=== PATIENT | female | born 1975 | race African-American/Black ===

== ENCOUNTER 2016-11-16 08:54 | Emergency (ER) | payer OTHER ==
[2016-11-16 09:09] VITALS: BP 138/85; PULSE 97; TEMP 98.1
[2016-11-16] MEDS ORDERED: ALBUTEROL SO4 0.083% IH SOL 2.5 MG/3 ML VIAL.NEB. NEB ONE ×2 (09:38→09:39)
[2016-11-16 10:31] LABS: BASOPHIL 0.7 % (0-2.0); EOSINOPHIL 1.8 % (0-4.5); MCH 28.1 pg (25.7-33.7); MCHC 32.7 g/dl (32.0-36.0); MEAN CELL VOLUME 86.1 fl (80-96); NEUTROPHILS 78.4 % (42.8-82.8); PLATELET COUNT 235 K/MM3 (134-434); RDW 17.5 % (11.6-15.6); WHITE BLOOD COUNT 10.3 K/mm3 (4.0-10.0)
[2016-11-16 10:34] LABS: URINE APPEARANCE SLCLOUDY; URINE BILIRUBIN NEGATIVE (NEGATIVE); URINE COLOR YELLOW; URINE GLUCOSE (UA) NEGATIVE (NEGATIVE); URINE KETONE TRACE (NEGATIVE); URINE LEUK ESTERASE NEGATIVE (NEGATIVE); URINE NITRITE NEGATIVE (NEGATIVE); URINE UROBILINOGEN NEGATIVE E.U./dl (0.2-1.0)
[2016-11-16 10:48] LABS: URINE BLOOD 1+ (NEGATIVE); URINE PROTEIN 1+ (NEGATIVE)
[2016-11-16 11:25] LABS: URINE HYALINE CAST 1 /lpf; URINE MUCUS FEW; URINE RBC 9 /hpf (0-3); URINE WBC 4 /hpf (3-5)
[2016-11-16 12:10] LABS: INR 1.01 (0.82-1.09); PROTHROMBIN TIME (PATIENT) 11.1 SEC (9.98-11.88)
[2016-11-16 12:12] LABS: ACTIVATED PTT 37.6 SECONDS (26.9-34.4)
--- NOTE | 2016-11-16 12:16 | PDOC ---
History of Present Illness - General Chief Complaint: Cold Symptoms Stated Complaint: COUGH, FEVER Time Seen by Provider: 11/16/16 09:14 History Source: Patient Exam Limitations: No Limitations - History of Present Illness Initial Comments: 11/16/16 12:11 CC cough and congesion x 1 day; concerned had PE last spring; had rapid RRR Timing/Duration: reports: just prior to arrival Possible Cause: Yes: no prior episodes Modifying Factors: worse with: activity Past History - Past Medical History Allergies/Adverse Reactions: Allergies Allergy/AdvReac Type Severity Reaction Status Date / Time No Known Allergies Allergy Verified 11/16/16 09:02 Home Medications: Ambulatory Orders NK [No Known Home Medication] 11/16/16 HTN: Yes (HX OF NOT ON MED) Psychiatric Problems: Yes (anxiety) Other medical history: HX OF P.E , NOT ON MEDS NOW - Immunization History Immunization Up to Date: Yes - Psycho/Social/Smoking Cessation Hx Anxiety: No Suicidal Ideation: No Smoking History: Never smoked Have you smoked in the past 12 months: No Information on smoking cessation initiated: No Hx Alcohol Use: No Drug/Substance Use Hx: No Substance Use Type: None Review of Systems - Review of Systems Constitutional: No: Chills, Fever HEENTM: Yes: Symptoms Reported, Nose Congestion Respiratory: Yes: Cough, Wheezing Cardiac (ROS): No: Symptoms Reported ABD/GI: No: Symptoms Reported : No: Symptoms Reported *Physical Exam - Vital Signs Last Vital Signs Temp Pulse Resp BP Pulse Ox 98.1 F 97 H 18 138/85 97 11/16/16 09:02 11/16/16 09:02 11/16/16 09:02 11/16/16 09:02 11/16/16 09:02 - Physical Exam General Appearance: Yes: Appropriately Dressed. No: Apparent Distress HEENT: positive: TMs Normal, Pharynx Normal, Nasal Congestion Neck: positive: Supple. negative: Tender, Rigid, Lymphadenopathy (R), Lymphadenopathy (L) Respiratory/Chest: positive: Lungs Clear. negative: Accessory Muscle Use, Rapid RR, Rhonchi, Stridor, Wheezing Cardiovascular: positive: Regular Rhythm, Regular Rate. negative: Murmur ED Treatment Course - LABORATORY CBC & Chemistry Diagram: 11/16/16 10:09 11/16/16 12:00 - ADDITIONAL ORDERS Additional order review: Laboratory Results 11/16/16 11/16/16 10:09 10:09 D-Dimer 421 H Urine Color Yellow Urine Appearance Slcloudy Urine pH 6.0 Ur Specific [place] 1.025 Urine Protein 1+ H Urine Glucose (UA) Negative Urine Ketones Trace H Urine Blood 1+ H Urine Nitrite Negative Urine Bilirubin Negative Urine Urobilinogen Negative Ur Leukocyte Esterase Negative Urine RBC 9 Urine WBC 4 Ur Epithelial Cells Few Hyaline Casts 1 Urine Mucus Few Urine HCG, Qual Negative 11/16/16 10:00 Influenza Types A,B Antigen (IVAN) - Final Nasopharyngeal Swab - Final 11/16/16 10:09 RBC 4.75 MCV 86.1 MCHC 32.7 RDW 17.5 H D MPV 10.0 Neutrophils % 78.4 Lymphocytes % 11.7 D Monocytes % 7.4 Eosinophils % 1.8 Basophils % 0.7 - Medications Given in the ED: ED Medications Discontinued Medications Generic Name Dose Route Start Last Admin Trade Name Freq PRN Reason Stop Dose Admin Albuterol Sulfate 1 amp 11/16/16 09:39 11/16/16 09:40 Ventolin 0.083% Nebulizer Soln - NEB 11/16/16 09:40 1 amp ONCE ONE Administration Medical Decision Making - Medical Decision Making 11/16/16 12:14 Albuterol made feel better; DDimer= <500; will send home with Dx Viral ilness *DC/Admit/Observation/Transfer Diagnosis at time of Disposition: Viral infection - Discharge Dispostion Disposition: HOME Condition at time of disposition: Stable Admit: No - Patient Instructions Additional Instructions: rest; lots of fluids; return for increased symptoms; see local MD this week; res ; use albuterol as needed - Post Discharge Activity Work/School Note: Back to Work
[2016-11-16 12:45] LABS: ALBUMIN 4.2 g/dl (3.4-5.0); BILIRUBIN,DIRECT 0.2 mg/dL (0.0-0.2); CALCIUM 9.2 mg/dL (8.5-10.1); CREATININE 0.9 mg/dL (0.55-1.02); TOT PROT 9.1 g/dl (6.4-8.2)
== END 2016-11-16 12:26 | disposition home or self-care (01) ==
LOC: JER 08:54 → JERFT 08:54
PROC: 3E0F7GC Introduction of Other Therapeutic Substance into Respiratory Tract, Via Natural or Artificial Opening (ICD-10-PCS; principal; 2016-11-16)
DX: J06.9 Acute upper respiratory infection, unspecified (principal); B97.89 Other viral agents as the cause of diseases classified elsewhere; I10 Essential (primary) hypertension; Z86.711 Personal history of pulmonary embolism
CPT/HCPCS: 36415; 80048; 80076; 81003; 81015; 84703; 85025; 85379; 85610; 85730; 87804; 94640; 99281-25

== ENCOUNTER 2017-05-20 20:31 | Emergency (ER) | payer OTHER ==
[2017-05-20 21:09] VITALS: BP 130/90; PULSE 80; TEMP 97.8; BMI 32.2
--- NOTE | 2017-05-20 22:23 | PDOC ---
History of Present Illness - General History Source: Patient <Jorden Alfrao - Last Filed: 05/20/17 22:41> - General History Source: Patient Exam Limitations: No Limitations - History of Present Illness Initial Comments: The patient is a 41 yo F with a past medical history significant for PE, Anemia , Anxiety and Bilateral pulmonary emboli who presents with a sensation of panic due to many circumstances that occurred today. The patient notes she had a PE several months back but is not on any blood thinner. As a result of the many circumstances that occurred in the past days she came here. She notes she was seen here for 1 episode of anxiety/panic in January,. The patient does not take anything on a chronic basis for anxiety. The patient is not homicidal or suicidal. The patient denies chest pain, headache and SOB. She is currently tearful during interview. <EllieCharley darling - Last Filed: 05/20/17 22:56> - General Chief Complaint: Psychiatric Stated Complaint: ANXIETY Time Seen by Provider: 05/20/17 22:22 Past History - Past Medical History HTN: Yes Psychiatric Problems: Yes (Anxiety) Other medical history: PE - Immunization History Immunization Up to Date: Yes - Psycho/Social/Smoking Cessation Hx Anxiety: No Suicidal Ideation: No Smoking History: Never smoked Have you smoked in the past 12 months: No Information on smoking cessation initiated: No Hx Alcohol Use: Yes (wine) Drug/Substance Use Hx: No Substance Use Type: None <Jorden Alfaro - Last Filed: 05/20/17 22:41> <Charley Mccray - Last Filed: 05/20/17 22:56> - Past Medical History Allergies/Adverse Reactions: Allergies Allergy/AdvReac Type Severity Reaction Status Date / Time peanut Allergy Severe Verified 05/20/17 21:09 No Known Drug Allergies Allergy Verified 05/20/17 21:09 Home Medications: Ambulatory Orders Albuterol Sulfate Inhaler - [Ventolin HFA Inhaler -] 2 inh PO Q4H #1 inh Review of Systems - Review of Systems Able to Perform ROS?: Yes Comments:: CONSTITUTIONAL: Absent: fever, no chills, no fatigue EYES: Absent: visual changes ENT: Absent: ear pain, no sore throat CARDIOVASCULAR: Absent: chest pain, no palpitations RESPIRATORY: Absent: cough, no SOB GI: Absent: abdominal pain, no nausea, no vomiting, no constipation, no diarrhea GENITOURINARY: Absent: dysuria, no frequency, no hematuria MUSKULOSKELETAL: Absent: back pain, no arthralgia, no myalgia NEURO: +feelings of anxiety/panic Absent: homicidal and suicidal thoughts SKIN: Absent: rash <MahendraCharley - Last Filed: 05/20/17 22:56> *Physical Exam - Vital Signs Last Vital Signs Temp Pulse Resp BP Pulse Ox 97.8 F 80 19 130/90 100 05/20/17 21:05 05/20/17 21:05 05/20/17 21:05 05/20/17 21:05 05/20/17 21:05 <Jorden Alfaro - Last Filed: 05/20/17 22:41> - Vital Signs Last Vital Signs Temp Pulse Resp BP Pulse Ox 97.8 F 80 19 130/90 100 05/20/17 21:05 05/20/17 21:05 05/20/17 21:05 05/20/17 21:05 05/20/17 21:05 - Physical Exam Comments: GENERAL: Well-appearing, well-nourished. No apparent distress. HEENT: Normocephalic, atraumatic. PERRL, EOM intact. CARDIOVASCULAR: Normal S1, S2. Regular rate and rhythm. PULMONARY: Clear to auscultation bilaterally. ABDOMEN: Soft, non-distended, non-tender. EXTREMITIES: Normal ROM in all four extremities. No gross deformities. SKIN: Warm, dry. No rash NEUROLOGICAL: No focal neurological deficits. <MahendraCharley - Last Filed: 05/20/17 22:56> Heart Score/ECG Review #1 NSR @ 71 bpm. Normal ECG. <Charley Mccray - Last Filed: 05/20/17 22:56> *DC/Admit/Observation/Transfer - Discharge Dispostion Admit: No <Jorden Alfaro - Last Filed: 05/20/17 22:41> - Attestations Scribe Attestion: Documentation prepared by Charley Mccray, acting as infertility medical assistant for Jorden Alfaro MD/DO. <Charlye Mccray - Last Filed: 05/20/17 22:56> Diagnosis at time of Disposition: Panic attack - Referrals Referrals: Judy Hayes MD [Primary Care Provider] - Lisha Tavares MD [Staff Physician] - Malina Ayala MD [Staff Physician] - - Patient Instructions Printed Discharge Instructions: Anxiety and Panic Attacks (Alternative Therapy) Additional Instructions: Please follow up with one of the doctors given to you as a referral here in the department. Return if any problems. - Post Discharge Activity Work/School Note: Back to Work
[2017-05-20] MEDS ORDERED: LORazepam 1 MG TABLET PO ONE (22:42)
[2017-05-20] MEDS ORDERED: LORazepam 0.5 MG TABLET ONE (22:52)
--- NOTE | 2017-05-21 10:16 | EKG ---
Test Reason : Blood Pressure : / mmHG Vent. Rate : 071 BPM Atrial Rate : 071 BPM P-R Int : 176 ms QRS Dur : 098 ms QT Int : 420 ms P-R-T Axes : 049 006 020 degrees QTc Int : 456 ms NORMAL SINUS RHYTHM NORMAL ECG WHEN COMPARED WITH ECG OF 12-FEB-2016 22:31, NO SIGNIFICANT CHANGE WAS FOUND Confirmed by MD ERNESTINA, SITA ([id number]) on 05/21/2017 10:16:39 AM Referred By: Confirmed By:SITA DO MD
== END 2017-05-20 23:09 | disposition home or self-care (01) ==
LOC: JER 20:31
DX: F41.0 Panic disorder [episodic paroxysmal anxiety] (principal); I10 Essential (primary) hypertension; D64.9 Anemia, unspecified; Z86.711 Personal history of pulmonary embolism
CPT/HCPCS: 93005; 93010; 99281-25

== ENCOUNTER 2017-12-06 10:33 | Emergency (ER) | payer OTHER ==
[2017-12-06 10:39] VITALS: TEMP 98.3; BMI 32.2
--- NOTE | 2017-12-06 11:08 | PDOC ---
History of Present Illness - General Chief Complaint: Shortness of Breath Stated Complaint: SOB, LT LEG PAIN Time Seen by Provider: 12/06/17 11:06 History Source: Patient Exam Limitations: No Limitations - History of Present Illness Initial Comments: CHIEF COMPLAINT: 42 y/o afebrile female with PMH PE c/o SOB and chest discomfort since last night. HISTORY OF PRESENT ILLNESS: The patient states she was feeling short of breath and very fatigued from chewing her food last night. Today, after she dropped off her daughter at school she states she felt short of breath again and states "I just don't feel right". She states she feels the same was she felt prior to her Pulmonary embolism 2 years ago. She admit the cause of the PE was never found and she is no longer on blood thinners. She also admits to a "numb" feeling in her left thigh but states that's been present for 1 month. She also has weird bruising on her left lower leg. She denies f/c, n/v/d, cough, hemoptysis, abd pain, back pain, control use, recent travel. Vital signs on arrival are within normal limits REVIEW OF SYSTEMS: GENERAL/CONSTITUTIONAL: No fever/chills. No weakness. No weight change. HEAD, EYES, EARS, NOSE AND THROAT: No change in vision. No ear pain or discharge. No sore throat. CARDIOVASCULAR: +SOB and chest discomfort. RESPIRATORY: No cough, wheezing, or hemoptysis. GASTROINTESTINAL: No abd pain, nausea, vomiting, diarrhea. GENITOURINARY: No dysuria, frequency, or change in urination. MUSCULOSKELETAL: +left leg "numbness". No joint or muscle swelling or pain. No neck or back pain. SKIN: +bruising to left lower leg. NEUROLOGIC: No headache, vertigo, loss of consciousness, or loss of sensation. PHYSICAL EXAM: GENERAL: The patient is awake, alert, and fully oriented, in no acute distress. She is well appearing and ambulatory. She speaks in full sentences. No cough. HEAD: Normal with no signs of trauma. ENT: Pupils equal, round and reactive to light, extraocular movements intact, sclera anicteric, conjunctiva clear. LUNGS: Clear to auscultation bilaterally. Normal excursion. No respiratory distress or use of accessory muscles. CV: RRR, S1/S2, no MRG. Cap refill < 2 sec. ABDOMEN: Soft, non-distended, non-tender even to deep palpation, no hepatomegaly or splenomegaly, no masses. EXTREMITIES: Normal range of motion, no edema. No calf pain b/l LEs. Negative Travis's sign b/l LEs. NEUROLOGICAL: Normal speech, normal gait. CN II-XII grossly intact. Motor and sensory intact in b/l UEs and b/l LEs. PSYCH: Normal mood, normal affect. SKIN: Warm, dry, normal turgor, no rashes or lesions noted. Past History - Past Medical History Allergies/Adverse Reactions: Allergies Allergy/AdvReac Type Severity Reaction Status Date / Time peanut Allergy Severe Verified 12/06/17 10:36 No Known Drug Allergies Allergy Verified 12/06/17 10:36 Home Medications: Ambulatory Orders Albuterol Sulfate Inhaler - [Ventolin HFA Inhaler -] 2 inh PO Q4H #1 inh Cardiac Disorders: No (P.E) COPD: No HTN: Yes Psychiatric Problems: Yes (Anxiety) - Immunization History Immunization Up to Date: Yes - Suicide/Smoking/Psychosocial Hx Smoking History: Never smoked Have you smoked in the past 12 months: No Information on smoking cessation initiated: No Hx Alcohol Use: Yes (wine) Drug/Substance Use Hx: No Substance Use Type: None *Physical Exam - Vital Signs Last Vital Signs Temp Pulse Resp BP Pulse Ox 98.3 F 90 18 141/84 100 12/06/17 10:37 12/06/17 10:37 12/06/17 10:37 12/06/17 10:37 12/06/17 10:37 Heart Score/ECG Review - ECG Intrepretation Comment:: Twelve-lead EKG was performed and reviewed by Dr. Le. There is normal sinus rhythm with a normal rate. The axis is normal. The intervals are normal. There are no ST or T wave abnormalities. Impression: Normal twelve-lead EKG ED Treatment Course - LABORATORY CBC & Chemistry Diagram: 12/06/17 11:21 12/06/17 11:21 Medical Decision Making - Medical Decision Making A/P: 42 y/o female with chest discomfort and SOB since last night that feels like her symptoms from when she had a PE 2 years ago. Cause of PE was never identified. Low threshold for scan to r/o PE. Plan is as follows: 1. Labs 2. EKG 3. chest CTA EKG - no [id number] pattern noted D-Dimer 1068 CTA IMPRESSION: No PE. No acute pathology in the chest Venous doppler b/l LE IMPRESSION: No evidence of DVT Gave patient all of her results. She is relieved. Will discharge to home with return precautions. The patient verbalizes understanding of all instructions, has no further questions and is awaiting discharge. *DC/Admit/Observation/Transfer Diagnosis at time of Disposition: Shortness of breath - Discharge Dispostion Disposition: HOME Condition at time of disposition: Good - Referrals Referrals: En Davison MD [Primary Care Provider] - Call tomorrow - Patient Instructions Printed Discharge Instructions: DI for Shortness of Breath Additional Instructions: Discharge instructions: -You had a CTA of your chest that was negative for pulmonary embolism -You had an ultrasound of your legs that was negative for blood clot -Please follow up with Dr. Davison as soon as possible -Return to the ER immediately with any worsening or concerning symptoms - Post Discharge Activity Forms/Work/School Notes: Back to Work
[2017-12-06 11:52] LABS: BASO % 1.3 % (0-2.0); EOS % 0.5 % (0-4.5); HEMATOCRIT 32.8 % (32.4-45.2); LYMPH % 23.3 % (8-40); MCH 22.7 pg (25.7-33.7); MCHC 30.5 g/dl (32.0-36.0); MEAN CELL VOLUME 74.4 fl (80-96); MEAN PLT VOLUME 9.3 fl (7.5-11.1); MONO % 6.9 % (3.8-10.2); PLATELET COUNT 288 K/MM3 (134-434); RBC 4.41 M/mm3 (3.60-5.2); WHITE BLOOD COUNT 5.6 K/mm3 (4.0-10.0)
[2017-12-06 12:25] LABS: ALBUMIN 3.8 g/dl (3.4-5.0); ANION GAP 10 (8-16); BLOOD UREA NITROGEN 17 mg/dL (7-18); CALCIUM 8.6 mg/dL (8.5-10.1); CHLORIDE 101 mmol/L (98-107); CO2 22 mmol/L (21-32); CREATININE 1.1 mg/dL (0.55-1.02); GLUCOSE,RANDOM 148 mg/dL (74-106); SGPT/ALT 15 U/L (12-78); SODIUM 133 mmol/L (136-145)
[2017-12-06 12:28] LABS: ALK PHOS 59 U/L (45-117); BILIRUBIN,TOTAL 0.9 mg/dL (0.2-1.0); TOT PROT 8.8 g/dl (6.4-8.2)
[2017-12-06 12:29] LABS: POTASSIUM 4.6 mmol/L (3.5-5.1)
[2017-12-06 12:30] LABS: SGOT/AST 18 U/L (15-37)
[2017-12-06 17:18] VITALS: BP 133/75; PULSE 70
--- NOTE | 2017-12-06 17:37 | EKG ---
Test Reason : Blood Pressure : / mmHG Vent. Rate : 074 BPM Atrial Rate : 074 BPM P-R Int : 168 ms QRS Dur : 098 ms QT Int : 404 ms P-R-T Axes : 051 016 030 degrees QTc Int : 448 ms NORMAL SINUS RHYTHM NORMAL ECG WHEN COMPARED WITH ECG OF 20-MAY-2017 22:29, NO SIGNIFICANT CHANGE WAS FOUND Confirmed by CRYS WYNN MD ([id number]) on 12/06/2017 5:37:03 PM Referred By: Confirmed By:CRYS WYNN MD
== END 2017-12-06 17:18 | disposition home or self-care (01) ==
LOC: JER 10:33
DX: R06.02 Shortness of breath (principal); M79.605 Pain in left leg; I10 Essential (primary) hypertension; F41.9 Anxiety disorder, unspecified; Z86.711 Personal history of pulmonary embolism
CPT/HCPCS: 36415; 71275-TC; 80053; 82550; 84484; 84703; 85025; 85379; 93005; 93010; 93970-TC; 99283-25

== ENCOUNTER 2019-10-13 07:20 | Emergency (ER) | payer OTHER ==
--- NOTE | 2019-10-13 07:28 | PDOC ---
History of Present Illness - General Stated Complaint: PALPATATIONS,RIGHT ARM NUMBNESS Time Seen by Provider: 10/13/19 07:28 History Source: Patient Exam Limitations: No Limitations - History of Present Illness Initial Comments: 44 year old female with past medical history of anemia, anxiety, PE (Left sided , unprovoked per pt, x3 years ago, was on Eliquis x3 months then DC), hypertension (noncompliant with medication xmany years), rheumatoid arthritis ( "a touch and then I changed my diet and it got better") presented to the emergency department for right arm numbness for one week. Patient reported her symptoms are constant, located to the ulnar aspect of her right arm, beginning at the crease between her thumb and her first finger and extending up her arm, with no aggravating or alleviating factors. She reported she has recently developed new right sided neck pain over the last couple of months. She reported she intermittently will feel a shock down her the right side of her arm. She also complained of right sided chest pulling like pulling a piece of bread apart. She reported that last night she stood up and sneezed at the exact same time, then experienced lightheadedness and palpitations for the next three minutes. She reported after that time she felt anxiety for the next hour, but it subsided after she drank some water. She reported this morning while driving to work she had another episode of lightheadedness and palpitations, prompting her to come to the emergency department. She denied hx of recent travel>5 hours, calf pain, hemoptysis, OCP or hormone use, surgery <4 weeks, hx active malignancy, PSH: x1 ("many years ago") ROS General: denied fever, chills, generalized weakness. HEENT: denied sore throat, rhinorrhea, ear pain. Cardiovascular: admitted to chest pain, palpitations, lightheadedness. denied syncope, diaphoresis. Respiratory: admitted to shortness of breath. denied cough, sputum production, hemoptysis. Gastrointestinal: denied abdominal pain, nausea, vomiting, diarrhea, constipation, blood in stool. Genitourinary: denied dysuria, increased urinary frequency, hematuria, urinary incontinence, flank pain. Back: denied back pain. Musculoskeletal: denied joint pain, muscle pain, joint swelling. Neurological: admitted to numbness. denied headache, dizziness, tingling, weakness. Integumentary: denied rash, laceration, abrasion. Hematologic/Lymphatic: denied bruising or bleeding. PE Constitutional: Well-nourished, Well-developed, appearing stated age. HEENT: head is normocephalic, atraumatic. EOMI. PERRLA. Neck: supple. Full ROM. no midline c-spine tenderness to palpation. no paraspinal tenderness to palpation. Cardiovascular: regular heart rhythm. no murmurs. no pericardial friction rub. Respiratory: clear to auscultation bilaterally. no crackles, rhonchi or wheezing. no stridor. Gastrointestinal: soft, nontender. normal bowel sounds. no rebound, guarding, masses. Extremities: peripheral pulses intact. no lower extremity edema. no calf tenderness bilaterally. Neurological: CN 2-12 grossly intact. moves all four extremities. 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 No drift upper extremities bilaterally. Psych: awake, alert, oriented x3. follows commands. answers questions appropriately. Past History - Past Medical History Allergies/Adverse Reactions: Allergies Allergy/AdvReac Type Severity Reaction Status Date / Time peanut Allergy Severe Verified 12/06/17 10:36 No Known Drug Allergies Allergy Verified 12/06/17 10:36 Home Medications: Ambulatory Orders Methylprednisolone [Medrol Dose Danis] 4 mg PO ASDIR #21 tablet 10/13/19 - Immunization History Immunization Up to Date: Yes - Psycho Social/Smoking Cessation Hx Smoking History: Never smoked Have you smoked in the past 12 months: No Hx Alcohol Use: Yes (wine) Drug/Substance Use Hx: No Substance Use Type: None ED Treatment Course - LABORATORY CBC & Chemistry Diagram: 10/13/19 07:58 10/13/19 07:58 Medical Decision Making - Medical Decision Making 44 year old female with above PMH presented to ED for right sided arm numbness x1 week, associated with right sided chest pain and two pre-syncopal episodes. Initial Vital Signs Temp Pulse Resp BP Pulse Ox 98.1 F 78 16 145/76 100 10/13/19 07:37 10/13/19 07:37 10/13/19 07:37 10/13/19 07:37 10/13/19 07:37 Afebrile. No tachycardia. No tachypnea. Hypertensive. No hypoxia on room air. Labs ordered: CBC, CMP, Serum , Mg, PT/PTT/INR, D-dimer, TSH, troponin Imaging ordered: CT cervical spine noncontrast, CXR Medications ordered: none EKG performed at 0740: rate 75, regular rhythm, normal axis, normal intervals, no acute ST changes, QTc 446. Wells' Criteria for Pulmonary Embolism from [employer] on 10/13/2019 All calculations should be rechecked by clinician prior to use --RESULT SUMMARY: 1.5 points Low risk group: 1.3% chance of PE in an ED population. Another study assigned scores ? 4 as PE Unlikely and had a 3% incidence of PE. --INPUTS: Clinical signs and symptoms of DVT > 0 = No PE is #1 diagnosis OR equally likely > 0 = No Heart rate > 100 > 0 = No Immobilization at least 3 days OR surgery in the previous 4 weeks > 0 = No Previous, objectively diagnosed PE or DVT > 1.5 = Yes Hemoptysis > 0 = No Malignancy w/ treatment within 6 months or palliative > 0 = No 10/13/19 09:55 Laboratory Last Values WBC 4.3 K/mm3 (4.0-10.0) 10/13/19 07:58 RBC 3.89 M/mm3 (3.60-5.2) 10/13/19 07:58 Hgb 7.2 GM/dL (10.7-15.3) L 10/13/19 07:58 Hct 24.3 % (32.4-45.2) L 10/13/19 07:58 MCV 62.5 fl (80-96) L 10/13/19 07:58 MCH 18.6 pg (25.7-33.7) L D 10/13/19 07:58 MCHC 29.7 g/dl (32.0-36.0) L 10/13/19 07:58 RDW 24.1 % (11.6-15.6) H 10/13/19 07:58 Plt Count 460 K/MM3 (134-434) H D 10/13/19 07:58 MPV 8.7 fl (7.5-11.1) 10/13/19 07:58 Absolute Neuts (auto) 1.7 K/mm3 (1.5-8.0) 10/13/19 07:58 Neutrophils % Childcare Attendant 10/13/19 07:58 Lymphocytes % Childcare Attendant 10/13/19 07:58 Monocytes % Childcare Attendant 10/13/19 07:58 Eosinophils % Childcare Attendant 10/13/19 07:58 Basophils % Childcare Attendant 10/13/19 07:58 Nucleated RBC % 0 % (0-0) 10/13/19 07:58 PT with INR 12.20 SEC (9.7-13.0) 10/13/19 07:58 INR 1.03 (0.83-1.09) 10/13/19 07:58 PTT (Actin FS) 29.3 SECONDS (25.2-36.5) 10/13/19 07:58 D-Dimer 1185 ng/ml (0-500) H 10/13/19 07:58 Sodium 135 mmol/L (136-145) L 10/13/19 07:58 Potassium 4.1 mmol/L (3.5-5.1) 10/13/19 07:58 Chloride 101 mmol/L (98-107) 10/13/19 07:58 Carbon Dioxide 27 mmol/L (21-32) 10/13/19 07:58 Anion Gap 7 MMOL/L (8-16) L 10/13/19 07:58 BUN 11.6 mg/dL (7-18) 10/13/19 07:58 Creatinine 0.9 mg/dL (0.55-1.3) 10/13/19 07:58 Est GFR (CKD-EPI)AfAm 90.13 10/13/19 07:58 Est GFR (CKD-EPI)NonAf 77.76 10/13/19 07:58 Random Glucose 98 mg/dL (74-106) 10/13/19 07:58 Calcium 9.4 mg/dL (8.5-10.1) 10/13/19 07:58 Magnesium 1.8 mg/dL (1.8-2.4) 10/13/19 07:58 Total Bilirubin 1.3 mg/dL (0.2-1) H 10/13/19 07:58 AST 21 U/L (15-37) 10/13/19 07:58 ALT 18 U/L (13-61) 10/13/19 07:58 Alkaline Phosphatase 54 U/L (45-117) 10/13/19 07:58 Troponin I < 0.02 ng/ml (0.00-0.05) 10/13/19 07:58 Total Protein 9.0 g/dl (6.4-8.2) H 10/13/19 07:58 Albumin 3.6 g/dl (3.4-5.0) 10/13/19 07:58 TSH 2.71 uIU/ml (0.358-3.74) 12 07:58 Serum , Qual Negative 10/13/19 07:58 D-dimer elevated. -CTA ordered Microcytic anemia. -Pt has had past Hgb in similar range -Pt informed and advised to start iron supplementation and F/U with PCP within 1 week for repeat blood work Mild hyponatremia, no other electrolyte abnormalities. TSH wnl Troponin undetectable Negative serum testing No JENNIFER CT report: Name: MELANIA GON[facility]AL[facility] DEPARTMENT OF RADIOLOGY Phys: Basilia Zepeda RESIDENT : 1975 Age: 44 Sex: F [facility] Acct: [id number] Loc: [address] Exam Date: 10/13/19 Status: [place] [address] Unit Number: [id number] EXAM#: TYPE/EXAM: RESULT: [id number] CT/CERVICAL SPINE CT W/O CONTR Right arm numbness CT scan of the cervical spine without intravenous contrast Coronal and sagittal reconstruction images were obtained. There is straightening of the cervical spine. No gross fracture, subluxation or prevertebral soft tissue swelling is seen. No jumped facets are identified. At C5-C6 level there is mild degenerative disc disease with mild central disc bulge and posterior spur formation as well as mild bilateral uncovertebral hypertrophy slightly narrowing the foramina. At C6-C7 level there is mild degenerative disc disease and minimal left uncovertebral hypertrophy slightly narrowing the left foramen. Visualized portion of the airway appears unremarkable. No gross enlarged lymph nodes are identified. Lung windows at the thoracic inlet appear unremarkable. IMPRESSION: The alignment is satisfactory. No gross fracture or subluxation is seen. No jumped facets are identified. C5-C6 mild central disc bulge and posterior spur formation as well as mild bilateral uncovertebral hypertrophy slightly narrowing the foramina. C6-C7 mild degenerative disc disease and minimal left uncovertebral hypertrophy slightly narrowing the left foramen. Correlate clinically to determine further evaluation and follow-up Reported By: Dameon Martinez MD 10/13/19923 CXR report: Name: MELANIA GONZALES DEPARTMENT OF RADIOLOGY Phys: Hill Machado MD : 1975 Age: 44 Sex: F [facility] Acct: [id number] Loc: [address] Exam Date: 10/13/19 Status: [place] [id number] Unit Number: [id number] EXAM#: TYPE/EXAM: RESULT: [id number] RAD/CHEST X-RAY PORTABLE* Chest pain. Single PA view of the chest. Midline trachea, no evidence of widening of the superior mediastinum. The cardiac silhouette is not enlarged. No evidence of pneumonia, atelectasis, congestive changes. No pneumothorax, or large pleural effusion seen. Left nipple ring. Intact visualized osseous structures. No evidence of bulky hilar adenopathy. Thoracic spine mild dextroscoliosis. . No significant interval change in comparison to PA view of the chest January 10, 2016. Impression. No evidence of active pulmonary disease. Reported By: Jeff Martinez MD 10/13/19 0915 10/13/19 10:52 CTA report: Name: MELANIA GONZALES DEPARTMENT OF RADIOLOGY Phys: Basilia Zepeda : 1975 Age: 44 Sex: F [facility] Acct: [id number] Loc: [address] Exam Date: 10/13/19 Status: [place] [address] Unit Number: [id number] EXAM#: TYPE/EXAM: RESULT: [id number] CT/CHEST CTA Right chest pain. Presyncope. History of PE CT scan of the chest following intravenous contrast. A post intravenous contrast CT angiogram of the chest was performed utilizing pulmonary embolus protocol. Coronal/ sagittal reconstruction images were obtained. 67 cc of Omnipaque 350 was intravenously injected Compared to prior chest x-ray dated 10/13/2019 as well as prior CTA of the chest dated 12/06/2017 No gross filling defect is seen within the main pulmonary artery and its proximal branches, bilaterally. The thoracic and visualized portion of the upper abdominal aorta is normally enhanced without evidence of aneurysmal dilatation or dissection. The heart is within normal limits in size. No gross mediastinal or hilar enlarged lymph nodes are identified. The lung is clear. No pneumothorax or pleural effusion is seen, bilaterally. Notes made of bilateral breast implants. A left nipple metallic ring is also seen. Included portion of the upper abdomen appears unremarkable. Visualized osseous structures appear intact with mild degenerative changes and anterior spondylosis in the lower thoracic spine. IMPRESSION: There is no gross evidence of a pulmonary embolus within the main pulmonary artery and its proximal branches, bilaterally. No enlarged mediastinal or hilar lymph nodes are identified. No acute lung disease is present. No pneumothorax or pleural effusion are identified, bilaterally. Reported By: Dameon Martinez MD 10/13/19 1045 Pt discharged with Neurosurgery referral, prescription for medrol dose pack. Pt agreed with plan for care. Pt discharged. Discharge - Discharge Information Problems reviewed: Yes Clinical Impression/Diagnosis: Arm numbness, Anemia Condition: Stable Disposition: HOME - Admission No - Additional Discharge Information Prescriptions: Methylprednisolone [Medrol Dose Danis] 4 mg PO ASDIR #21 tablet - Follow up/Referral Referrals: Ehsan Arceo MD, FA[facility] [Staff Physician] - En Davison MD [Primary Care Provider] - Sandip Rowe MD [Staff Physician] - - Patient Discharge Instructions Patient Printed Discharge Instructions: DI for Iron Deficiency Anemia-Adult, Iron Supplements Additional Instructions: Follow up with your primary care doctor within 3 days regarding your Emergency Room visit. Your care is not complete until you follow up. Bring all paperwork given to you today to your appointment. Follow up with a neurosurgeon within 5 days regarding your Emergency Room visit. Your care is not complete until you follow up. Bring all paperwork given to you today to your appointment. I have provided you with a referral. Follow up with a bench worker binding within 5 days regarding your Emergency Room visit. Your care is not complete until you follow up. Bring all paperwork given to you today to your appointment. I have provided you with a referral. You are anemic, please start taking an over the counter Iron Supplement. Please follow up with your primary care doctor regarding this finding and have your blood work repeated within 7 days. I have prescribed a Medrol Dose Pack, it is a steroid which will help to decrease inflammation in your neck. Take as advised on label. Do not stop early on your own. Return to the Emergency Department for increasing pain, chest pain, increasing numbness, shortness of breath, weakness of your arms or legs (like one side is not as strong as the other), fever, vomiting, lightheadedness, passing out or any other new, worsening or concerning symptoms. - Post Discharge Activity Work/Back to School Note: Back to Work
[2019-10-13 07:57] VITALS: BMI 30.9
[2019-10-13 08:29] LABS: HEMATOCRIT 24.3 % (32.4-45.2); HEMOGLOBIN 7.2 GM/dL (10.7-15.3); MCHC 29.7 g/dl (32.0-36.0); MEAN CELL VOLUME 62.5 fl (80-96); MEAN PLT VOLUME 8.7 fl (7.5-11.1); PLATELET COUNT 460 K/MM3 (134-434); RBC 3.89 M/mm3 (3.60-5.2); RDW 24.1 % (11.6-15.6); WHITE BLOOD COUNT 4.3 K/mm3 (4.0-10.0)
[2019-10-13 08:30] LABS: MCH 18.6 pg (25.7-33.7)
[2019-10-13 08:50] LABS: ALBUMIN 3.6 g/dl (3.4-5.0); ALK PHOS 54 U/L (45-117); ANION GAP 7 MMOL/L (8-16); BILIRUBIN,TOTAL 1.3 mg/dL (0.2-1); BLOOD UREA NITROGEN 11.6 mg/dL (7-18); CALCIUM 9.4 mg/dL (8.5-10.1); CHLORIDE 101 mmol/L (98-107); CO2 27 mmol/L (21-32); CREATININE 0.9 mg/dL (0.55-1.3); GLUCOSE,RANDOM 98 mg/dL (74-106); MAGNESIUM 1.8 mg/dL (1.8-2.4); POTASSIUM 4.1 mmol/L (3.5-5.1); SGOT/AST 21 U/L (15-37); SGPT/ALT 18 U/L (13-61); SODIUM 135 mmol/L (136-145)
[2019-10-13 08:53] LABS: INR 1.03 (0.83-1.09); PROTHROMBIN TIME (PATIENT) 12.2 SEC (9.7-13.0)
[2019-10-13 08:55] LABS: ACTIVATED PTT 29.3 SECONDS (25.2-36.5)
[2019-10-13] MEDS ORDERED: ACETAMINOPHEN 1000 MG/100 ML VIAL (NON FORMULARY) IVPB ONE (09:48)
[2019-10-13] MEDS ORDERED: ALBUTEROL SO4 2.5/IPRATROPIUM 0.5 INH SOL 3 ML VIAL.NEB. NEB ONE (09:48)
[2019-10-13] MEDS ORDERED: SODIUM CHLORIDE 2,449 ML IV ONE (09:48)
[2019-10-13 11:08] VITALS: BP 139/68; PULSE 72; TEMP 98
--- NOTE | 2019-10-13 11:33 | PDOC ---
Attending Attestation - Resident Resident Name: Basilia Zepeda - ED Attending Attestation I have performed the following: I have examined & evaluated the patient, The case was reviewed & discussed with the resident, I agree w/resident's findings & plan, Exceptions are as noted - HPI HPI: 10/13/19 11:02 44 Years old with history of anemia anxiety PE in the past presents to the ED with radicular right arm numbness x1 week episode of palpitations yesterday no chest pain no shortness of breath no nausea no vomiting no diarrhea numbness is moderate persistent possible exacerbating alleviating factors Patient is off anticoagulation for PE was unprovoked - Physicial Exam PE: 10/13/19 11:33 Vitals: Triage Vital signs reviewed General Appearance: No acute distress, well nourished well developed, Cardiac: Regular rate and rhythym, no murmurs, no rubs, no gallops, Lungs: Clear to auscultation bilateral, good air movement bilaterally, Abdomen: Soft, non distended, normal bowel sounds, non tender to palpation Extremities: Full range of motion to all extremities, no cyanosis, clubbing, or edema Skin: Warm and dry, no rashes or lesions, no rash, no petechiae Neuro: AOX3; cranial Nerves 2-12 grossly intact, strength intact to all extremities, mild numbness right arm ulnar distribution, gait normal Psych: Normal mood, normal affect - Medical Decision Making 10/13/19 17:27 44 years old with radicular arm discomfort and palpitations last night previous history of unprovoked PE Unable to use PERC criteria low risk by Wells will use and conjunction with d- dimer to risk stratify D-dimer elevated Will CTA CTA negative for PE History and examination most consistent with radicular neck discomfort Patient will given Medrol Dosepak as well as neurosurgery follow-up. She was also advised to follow-up with hematology given that she has not had what appears to be a definitive work-up for her previous unprovoked PE Findings, the need for follow-up and strict return instructions discussed with patient.
--- NOTE | 2019-10-13 13:13 | EKG ---
Test Reason : Blood Pressure : / mmHG Vent. Rate : 075 BPM Atrial Rate : 075 BPM P-R Int : 160 ms QRS Dur : 090 ms QT Int : 400 ms P-R-T Axes : 064 002 033 degrees QTc Int : 446 ms NORMAL SINUS RHYTHM NORMAL ECG WHEN COMPARED WITH ECG OF 06-DEC-2017 12:23, NO SIGNIFICANT CHANGE WAS FOUND Confirmed by ENZO DAS MD ([id number]) on 10/13/2019 1:13:21 PM Referred By: Confirmed By:ENZO DAS MD
[2019-10-13 14:55] LABS: MACROCYTOSIS 1+
== END 2019-10-13 11:14 | disposition home or self-care (01) ==
LOC: JER 07:20
DX: R20.0 Anesthesia of skin (principal); D64.9 Anemia, unspecified; Z91.010 Allergy to peanuts; F41.9 Anxiety disorder, unspecified; Z86.711 Personal history of pulmonary embolism; I10 Essential (primary) hypertension; M06.9 Rheumatoid arthritis, unspecified; Z91.14 Patient's other noncompliance with medication regimen
CPT/HCPCS: 36415; 71045-TC-FY; 71275-TC; 72125-TC; 80053; 83735; 84443; 84484; 84703; 85025; 85379; 85610; 85730; 93005; 93010; 99285-25; Q9967

== ENCOUNTER 2019-12-04 18:12 | Inpatient (IN) | payer OTHER ==
--- NOTE | 2019-12-04 20:01 | PDOC ---
Documentation entered by Avila Young SCRIBE, acting as scribe for Alejandra Cerda MD. Alejandra Cerda MD: This documentation has been prepared by the Hector hdz Xhesika, SCRIBE, under my direction and personally reviewed by me in its entirety. I confirm that the documentation accurately reflects all work, treatment, procedures, and medical decision making performed by me. Attending Attestation - Resident Resident Name: MindywillianTom - ED Attending Attestation I have performed the following: I have examined & evaluated the patient, The case was reviewed & discussed with the resident, I agree w/resident's findings & plan, Exceptions are as noted - HPI HPI: 12/04/19 19:18 The patient is a 44 year old female with a significant PMH of anemia, anxiety, PE (Left sided, unprovoked per pt, x3 years ago, was on Eliquis x3 months then DC), hypertension, rheumatoid arthritis who presents to the emergency department for shortness of breath and lightheadedness since 3pm. The patient states she went outside to move her car and felt like she had difficulty maneuvering around. The patient denies chest pain, headache. Denies fever, chills, cough, nausea, vomiting, diarrhea and constipation. Denies dysuria, frequency, urgency and hematuria. Allergies: NKDA Surgical Hx: PCP: Dr. En Davison - Physicial Exam PE: 12/04/19 19:19 GENERAL: Awake, alert, and fully oriented, +hyperventilating HEAD: No signs of trauma EYES: PERRLA, EOMI, sclera anicteric, conjunctiva clear ENT: Auricles normal inspection, hearing grossly normal, nares patent, oropharynx clear without exudates. Moist mucosa NECK: Normal ROM, supple, no lymphadenopathy, JVD, or masses LUNGS: Breath sounds equal, clear to auscultation bilaterally. No wheezes, and no crackles HEART: Regular rate and rhythm, normal S1 and S2, no murmurs, rubs or gallops ABDOMEN: Soft, nontender, normoactive bowel sounds. No guarding, no rebound. No masses EXTREMITIES: Normal range of motion, no edema. No clubbing or cyanosis. No cords, erythema, or tenderness NEUROLOGICAL: Cranial nerves II through XII grossly intact. SKIN: Warm, Dry, normal turgor, no rashes or lesions noted. - Medical Decision Making 12/04/19 20:00 44-year-old female who presents with complaint of onset of lightheadedness and shortness of breath this afternoon while trying to move her car Plan CBC, chemistry, cardiac, chest x-ray 12/04/19 21:52 hemoglobin=6.9 plan will tranfuse for this symptomatic anemia
--- NOTE | 2019-12-04 20:29 | PDOC ---
History of Present Illness - General Chief Complaint: Shortness of Breath Stated Complaint: DIZZINESS Time Seen by Provider: 12/04/19 19:02 History Source: Patient Exam Limitations: No Limitations - History of Present Illness Initial Comments: 12/04/19 20:17 44 yo female pmh PE (not on AC) anemia, anxiety, HTN, rheumatoid arthritis presents to the ED for sudden onset chest palpitations, SOB and lightheadedness. Pt states at 3 pm while in her moving her car, pt had associated nausea without vomiting and diaphoresis. The symptoms began and resolved over the next 1 hour without intervention. Pt reports another similar episode while in the ED that resolved within 5 min. Pt states PE was3 years ago at [facility], started on eliquis however, does not take it due to excessive bleeding during menses, no documented PE after multiple PE scans at [place]. Pt denies difficulty breathing, chest pain currently, hx of [place], denies F/C/N/V, leg swelling/calf tenderness, OCP use, smoking, recent travel, sick contacts, changes in bowel or bladder habits Past History - Past Medical History Allergies/Adverse Reactions: Allergies Allergy/AdvReac Type Severity Reaction Status Date / Time peanut Allergy Severe Verified 12/06/17 10:36 No Known Drug Allergies Allergy Verified 12/06/17 10:36 Home Medications: Ambulatory Orders NK [No Known Home Medication] 12/04/19 Cardiac Disorders: No (P.E) COPD: No HTN: Yes Psychiatric Problems: Yes (Anxiety) - Immunization History Immunization Up to Date: Yes - Psycho Social/Smoking Cessation Hx Smoking History: Never smoked Have you smoked in the past 12 months: No Information on smoking cessation initiated: No Hx Alcohol Use: No Drug/Substance Use Hx: No Substance Use Type: None Review of Systems - Review of Systems Constitutional: No: Chills, Fever HEENTM: No: Eye Pain, Double Vision Respiratory: No: Shortness of Breath (resolved) Cardiac (ROS): No: Chest Pain, Edema, Palpitations (resolved) ABD/GI: No: Abdominal Distended, Constipated, Diarrhea, Nausea (resolved), Vomiting, Abdominal cramping : No: Burning, Dysuria, Frequency, Flank Pain Musculoskeletal: No: Back Pain, Muscle Weakness Integumentary: No: Change in Color Neurological: No: Headache, Numbness, Paresthesia *Physical Exam - Vital Signs Last Vital Signs Temp Pulse Resp BP Pulse Ox 97.1 F L 87 20 139/73 100 12/04/19 18:45 12/04/19 18:45 12/04/19 18:45 12/04/19 18:45 12/04/19 18:45 - Physical Exam General Appearance: Yes: Nourished, Appropriately Dressed. No: Apparent Distress HEENT: positive: EOMI Neck: positive: Supple. negative: Carotid bruit, Stridor Respiratory/Chest: positive: Lungs Clear, Normal Breath Sounds. negative: Respiratory Distress, Accessory Muscle Use, Rapid RR, Crackles, Rales, Rhonchi, Stridor, Wheezing Cardiovascular: positive: Regular Rhythm, Regular Rate, S1, S2. negative: Edema , JVD, Murmur Vascular Pulses: Dorsalis-Pedis (R): 4+, Doralis-Pedis (L): 4+ Gastrointestinal/Abdominal: positive: Flat, Soft. negative: Pulsatile Mass, Protuberent, Distended, Guarding, Rebound Musculoskeletal: negative: CVA Tenderness Extremity: positive: Normal Capillary Refill, Normal Inspection, Normal Range of Motion. negative: Swelling, Calf Tenderness Integumentary: positive: Normal Color, Dry, Warm Neurologic: positive: Fully Oriented, Alert, Normal Mood/Affect, Normal Response ED Treatment Course - LABORATORY CBC & Chemistry Diagram: 12/04/19 21:03 12/04/19 21:03 Medical Decision Making - Medical Decision Making 12/04/19 20:29 44 yo female pmh PE (not on AC) anemia, anxiety, HTN, rheumatoid arthritis presents to the ED for sudden onset chest palpitations, SOB and lightheadedness. Pt states at 3 pm while in her moving her car, pt had associated nausea without vomiting and diaphoresis. The symptoms began and resolved over the next 1 hour without intervention. Pt reports another similar episode while in the ED that resolved within 5 min. Pt states PE was3 years ago at [facility], started on eliquis however, does not take it due to excessive bleeding during menses, no documented PE after multiple PE scans at [place]. Pt denies difficulty breathing, chest pain currently, hx of [place], denies F/C/N/V, leg swelling/calf tenderness, OCP use, smoking, recent travel, sick contacts, changes in bowel or bladder habits vitals WNL Pt well appearing, NAD, denies current medical complaints CXR, EKG, Labs Multiple neg CT PE studies done, D dimer consistently elevated in the past. Vitals WNL, pt well appearing, denies CP Shared decision making with pt, discussed exposure to radiation and pt states no CT PE study at this time EKG NSR no ischemic change, vent rate 88, QTc 484 CBC shows heme 6.9. Pt has chronic anemia requiring transfusions in the past . SOB and lightheadedness on initial complaint likely due to symptomatic anemia Type and screen ordered and will admit and transfuse Discharge - Discharge Information Problems reviewed: Yes Clinical Impression/Diagnosis: Symptomatic anemia Condition: Stable - Admission Yes - Follow up/Referral Referrals: En Davison MD [Primary Care Provider] - - Patient Discharge Instructions - Post Discharge Activity
[2019-12-04 21:26] LABS: BASO % 0.7 % (0-2.0); EOS % 0.6 % (0-4.5); HEMATOCRIT 22.8 % (32.4-45.2); LYMPH % 37.6 % (8-40); MCH 18.7 pg (25.7-33.7); MCHC 30.1 g/dl (32.0-36.0); MEAN CELL VOLUME 62.2 fl (80-96); MEAN PLT VOLUME 9.4 fl (7.5-11.1); MONO % 5.5 % (3.8-10.2); NEUT % 55.6 % (42.8-82.8); PLATELET COUNT 459 K/MM3 (134-434); RBC 3.67 M/mm3 (3.60-5.2); RDW 23.1 % (11.6-15.6); WHITE BLOOD COUNT 6.6 K/mm3 (4.0-10.0)
[2019-12-04 21:27] LABS: HEMOGLOBIN 6.9 GM/dL (10.7-15.3)
[2019-12-04 21:42] LABS: INR 1.03 (0.83-1.09); PROTHROMBIN TIME (PATIENT) 12.1 SEC (9.7-13.0)
[2019-12-04 22:01] LABS: ANISOCYTOSIS 2+; OVALOCYTE FEW
[2019-12-04 22:06] LABS: ALBUMIN 3.6 g/dl (3.4-5.0); ALK PHOS 58 U/L (45-117); ANION GAP 8 MMOL/L (8-16); BILIRUBIN,TOTAL 0.5 mg/dL (0.2-1); BLOOD UREA NITROGEN 13.8 mg/dL (7-18); CALCIUM 9.1 mg/dL (8.5-10.1); CHLORIDE 103 mmol/L (98-107); CO2 24 mmol/L (21-32); CREATININE 0.9 mg/dL (0.55-1.3); GLUCOSE,RANDOM 79 mg/dL (74-106); POTASSIUM 4.9 mmol/L (3.5-5.1); SGOT/AST 31 U/L (15-37); SGPT/ALT 14 U/L (13-61); SODIUM 135 mmol/L (136-145); TOT PROT 8.8 g/dl (6.4-8.2)
--- NOTE | 2019-12-04 23:15 | HP ---
Admitting History and Physical - Primary Care Physician PCP: En Davison - Admission Chief Complaint: Palpitations, SOB History of Present Illness: This is a 44 y/o woman with a PMHx of PE (no AC), Anemia (blood transfusions), HTN, RA, Anxiety. Who presents to the ED with sudden onset of chest palpitations , SOB, and lightheadedness. Patient reports at 3pm while driving she became nauseous without vomiting, and diaphoretic. The symptoms began and resolved over the next 1 hour without intervention. Patient reports having another similar episode while in the ED that resolved within 5 min. Patient reports that the PE was 3 years ago at [facility], she was started on eliquis however, did not continue due to excessive bleeding during her menses. There were no documented PE after multiple PE scans at [place]. Patient denies having difficulty breathing, chest pain currently, hx of [place], denies F/C/N /V, leg swelling/calf tenderness, OCP use, smoking, recent travel, sick contacts , changes in bowel or bladder habits History Source: Patient Limitations to Obtaining History: No Limitations - Past Medical History Cardiovascular: Yes: HTN Pulmonary: Yes: Pulmonary Embolus (on eliquis) ...LMP: 11/28/19 ...: No Heme/Onc: Yes: Anemia Psych: Yes: Anxiety - Smoking History Smoking history: Never smoked Have you smoked in the past 12 months: No - Alcohol/Substance Use Hx Alcohol Use: No - Social History History of Recent Travel: No Home Medications - Allergies Allergies/Adverse Reactions: Allergies Allergy/AdvReac Type Severity Reaction Status Date / Time peanut Allergy Severe Verified 12/06/17 10:36 No Known Drug Allergies Allergy Verified 12/06/17 10:36 - Home Medications Home Medications: Ambulatory Orders NK [No Known Home Medication] 12/04/19 Family Medical History Family Hx Coronary Artery Disease: Father (HTN, HLD) Family Hx Diabetes: Mother (Anemia- Mother) Family Hx Renal Disease: Brother Review of Systems - Review of Systems Constitutional: reports: No Symptoms Eyes: reports: No Symptoms HENT: reports: No Symptoms Neck: reports: No Symptoms Cardiovascular: reports: Palpitations, Shortness of Breath Respiratory: reports: SOB, SOB on Exertion Gastrointestinal: reports: Nausea Genitourinary: reports: No Symptoms Breasts: reports: No Symptoms Reported Musculoskeletal: reports: Back Pain, Extremity Pain Integumentary: reports: No Symptoms Neurological: reports: No Symptoms Endocrine: reports: No Symptoms Hematology/Lymphatic: reports: No Symptoms Psychiatric: reports: Anxiety Pain Intensity: 4 Physical Examination Vital Signs: Vital Signs Temperature 97.1 F L 12/04/19 18:45 Pulse Rate 87 12/04/19 18:45 Respiratory Rate 20 12/04/19 18:45 Blood Pressure 139/73 12/04/19 18:45 O2 Sat by Pulse Oximetry (%) 100 12/04/19 18:45 Constitutional: Yes: Well Nourished, No Distress, Anxious, Obese Eyes: Yes: WNL, Conjunctiva Clear, EOM Intact, PERRL HENT: Yes: WNL, Atraumatic, Normocephalic Neck: Yes: WNL, Supple, Trachea Midline Cardiovascular: Yes: Tachycardia, S1, S2. No: Murmur Respiratory: Yes: Regular, CTA Bilaterally, SOB on Exertion Gastrointestinal: Yes: WNL, Normal Bowel Sounds, Soft, Abdomen, Obese ...Rectal Exam: Yes: Deferred Renal/: Yes: WNL Breast(s): Yes: WNL Musculoskeletal: Yes: WNL Extremities: Yes: WNL Edema: No Peripheral Pulses WNL: Yes Neurological: Yes: WNL, Alert, Oriented, Cran Nerves II-XII Intact ...Motor Strength: WNL Psychiatric: Yes: WNL, Alert, Oriented Labs: CBC, BMP 12/04/19 21:03 12/04/19 21:03 Laboratory Results - last 24 hr 12/04/19 12/04/19 12/04/19 21:03 21:03 21:03 WBC 6.6 RBC 3.67 Hgb 6.9 L* Hct 22.8 L MCV 62.2 L MCH 18.7 L MCHC 30.1 L RDW 23.1 H Plt Count 459 H MPV 9.4 Absolute Neuts (auto) 3.6 Neutrophils % 55.6 Lymphocytes % 37.6 D Monocytes % 5.5 Eosinophils % 0.6 Basophils % 0.7 Nucleated RBC % 0 Hypochromia 2+ Anisocytosis 2+ Ovalocytes Few PT with INR INR D-Dimer Cancelled Sodium 135 L Potassium 4.9 Chloride 103 Carbon Dioxide 24 Anion Gap 8 BUN 13.8 Creatinine 0.9 Est GFR (CKD-EPI)AfAm 90.13 Est GFR (CKD-EPI)NonAf 77.76 Random Glucose 79 Calcium 9.1 Iron 20 L TIBC 514 H Iron Saturation 3 L Unsaturated IBC 494 H Ferritin 3.0 L Total Bilirubin 0.5 AST 31 ALT 14 Alkaline Phosphatase 58 Creatine Kinase 71 Troponin I < 0.02 Total Protein 8.8 H Albumin 3.6 Serum , Qual Blood Type Antibody Screen Crossmatch 12/04/19 12/04/19 12/04/19 21:03 21:03 22:30 WBC RBC Hgb Hct MCV MCH MCHC RDW Plt Count MPV Absolute Neuts (auto) Neutrophils % Lymphocytes % Monocytes % Eosinophils % Basophils % Nucleated RBC % Hypochromia Anisocytosis Ovalocytes PT with INR 12.10 INR 1.03 D-Dimer Sodium Potassium Chloride Carbon Dioxide Anion Gap BUN Creatinine Est GFR (CKD-EPI)AfAm Est GFR (CKD-EPI)NonAf Random Glucose Calcium Iron TIBC Iron Saturation Unsaturated IBC Ferritin Total Bilirubin AST ALT Alkaline Phosphatase Creatine Kinase Troponin I Total Protein Albumin Serum , Qual Negative Blood Type A POSITIVE Antibody Screen Negative Crossmatch See Detail Intake & Output 12/02/19 12/03/19 12/04/19 12/05/19 23:59 23:59 23:59 23:59 Intake Total 0 Balance 0 Weight 86.183 kg 79.917 kg Imaging - Results Chest X-ray: Image Reviewed EKG: Image Reviewed Problem List - Problems (1) Symptomatic anemia Assessment/Plan: Likely secondary to menorrhagia hx blood transfusions PRBC x1 ordered in ED FE, TIBC, Ferritin add on Monitor CBC Monitor vitals Appreciate Hematology consult Consider Project/Production Manager Imaging consult Code(s): D64.9 - ANEMIA, UNSPECIFIED (2) Shortness of breath Assessment/Plan: Likely secondary to Anemia vs PE Hgb 6.3 Spo2 98% RA Chest Xray image- no infiltrate no effusion noted Appreciate Pulmonology consult PERC 2 Wells Score 3 ddimer-pending Last CTA 10/13/19- no gross evidence of PE, no enlarged medinstinal. no acute lung disease, no pneumothorax or pleural effusion If dDimer elevated would defer to Pulmonology HR now 80-90s Monitor vitals O2 Code(s): R06.02 - SHORTNESS OF BREATH (3) Heart palpitations Assessment/Plan: Likely secondary to Anemia EKG reviewed Serial Enzymes negx1, will trend Consider Cardiology consult Monitor CBC, BMP Monitor vitals Code(s): R00.2 - PALPITATIONS (4) HTN (hypertension) Assessment/Plan: stable Monitor BP Patient reports taking homeopathic supplements only Monitor renal function Code(s): I10 - ESSENTIAL (PRIMARY) HYPERTENSION (5) Anxiety Assessment/Plan: stable Patient reports using CBD oils/gummies Will continue to monitor and treat with interventions accordingly Code(s): F41.9 - ANXIETY DISORDER, UNSPECIFIED Assessment/Plan This is a 44 y/o woman with a PMHx of PE (no AC), Anemia (blood transfusions), HTN, RA, Anxiety. Admitted for Symptomatic Anemia for further evaluation of their emergent condition. Plan: See Problem List FEN PO fluids as tolerated Replete lytes prn Low Na Diet DVT ppx OOB SCDs Hold AC secondary to Anemia Dispo: Requires Inpatient Care Visit type - Emergency Visit Emergency Visit: Yes ED Registration Date: 12/04/19 Care time: The patient presented to the Emergency Department on the above date and was hospitalized for further evaluation of their emergent condition. - New Patient This patient is new to me today: Yes Date on this admission: 12/04/19 - Critical Care Critical Care patient: No
[2019-12-05 01:52] LABS: IRON SERUM 20 ug/dL (50-175); TOTAL IRON BINDING CAPACITY 514 ug/dL (250-450)
[2019-12-05 05:20] VITALS: BMI 30.2
[2019-12-05 08:33] LABS: HEMATOCRIT 25.3 % (32.4-45.2); HEMOGLOBIN 7.8 GM/dL (10.7-15.3); MCHC 30.7 g/dl (32.0-36.0); MEAN CELL VOLUME 65.1 fl (80-96); MEAN PLT VOLUME 9.4 fl (7.5-11.1); PLATELET COUNT 392 K/MM3 (134-434); RBC 3.88 M/mm3 (3.60-5.2); RDW 24.5 % (11.6-15.6); WHITE BLOOD COUNT 4.8 K/mm3 (4.0-10.0)
[2019-12-05 08:41] LABS: ANION GAP 7 MMOL/L (8-16); CALCIUM 8.9 mg/dL (8.5-10.1); CHLORIDE 103 mmol/L (98-107); CO2 27 mmol/L (21-32); CREATININE 0.9 mg/dL (0.55-1.3); GLUCOSE,RANDOM 84 mg/dL (74-106); POTASSIUM 4.4 mmol/L (3.5-5.1); SODIUM 136 mmol/L (136-145)
--- NOTE | 2019-12-05 09:24 | EKG ---
Test Reason : Blood Pressure : / mmHG Vent. Rate : 088 BPM Atrial Rate : 088 BPM P-R Int : 154 ms QRS Dur : 092 ms QT Int : 400 ms P-R-T Axes : 057 -07 017 degrees QTc Int : 484 ms NORMAL SINUS RHYTHM PROLONGED QT ABNORMAL ECG WHEN COMPARED WITH ECG OF 13-OCT-2019 07:40, NONSPECIFIC T WAVE ABNORMALITY NOW EVIDENT IN ANTERIOR LEADS Confirmed by Hao Vinson MD ([id number]) on 12/05/2019 9:24:27 AM Referred By: Confirmed By:Hao Vinson MD
--- NOTE | 2019-12-05 09:38 | CONSULT ---
Consultation: CONSULT SERVICE: Hematology/Oncology Resident HISTORY OF PRESENT ILLNESS: 44yo F with h/o of ? unprovoked PE (not on AC; never had thrombophilia workup ), anemia with prior transfusions, uterine fibroids, HTN, and RA who presents this hospitalization due to feeling short of breath, lightheaded, and disoriented. Pt was noted to have Hgb of 6 and was transfused 1U PRBC. She has previously had to receive transfusions without any difficulty for anemia. Pt reports having heavy regular menses, for which she was diagnosed with uterine fibroids. It was recommended that she receive a complete hysterectomy, however she wanted to explore more options and did not end up following up. Pt usually has extended menstrual periods with heavy bleeding described as ~10-12 pads in her first two days of her cycle with resolution afterwards. Pt has tried iron pills, however she reports that they made her sick and denies any constipation from them. In addition, pt was diagnosed 3 years prior with unprovoked PE for which was she put on Eliquis for. Pt was unable to follow-up due to outpatient scheduling problems and was taken off Eliquis due to her bleeding issue above. Pt currently does not use any OCP and has not had any extended travel. 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 LMP - Ended [employer] Wednesday family Hx: Mother - Fibroids, DM Father - HTN, HLd Maternal GM - PE (age 50yo) REVIEW OF SYSTEMS: As per HPI PHYSICAL EXAMINATION Vital Signs - 24 hr 12/04/19 12/04/19 12/04/19 18:37 18:45 23:55 Temperature 97.1 F L 97.1 F L 98.9 F Pulse Rate 87 Pulse Rate [ 87 80 Right Radial] Respiratory 20 20 18 Rate Blood Pressure 139/73 Blood Pressure 139/73 134/64 [Left Arm] O2 Sat by Pulse 100 100 98 Oximetry (%) 12/05/19 12/05/19 12/05/19 00:10 02:24 03:00 Temperature 98.9 F 98.8 F Pulse Rate 103 H Pulse Rate [ 88 94 H Right Radial] Respiratory 18 18 18 Rate Blood Pressure 141/75 Blood Pressure 135/72 128/72 [Left Arm] O2 Sat by Pulse 99 98 96 Oximetry (%) GENERAL: NAD, Awake, alert, and fully oriented HEENT: NC/AT, EOMI, IDRIS, no conjunctival pallor, sclera anicteric, MMM LUNGS: CTA bilaterally. No wheezes, and no crackles. No accessory muscle use. HEART: RRR, normal S1 and S2 without murmur ABDOMEN: Soft, NT/ND, normoactive bowel sounds, no guarding. No hepatomegaly. EXTREMITIES: 2+ distal pulses b/l, warm, well-perfused. No calf tenderness. No peripheral edema. PSYCHIATRIC: Cooperative. Good eye contact. Appropriate mood and affect. SKIN: Warm, dry, no rashes or lesions noted. Laboratory Results - last 24 hr 12/04/19 12/04/19 12/04/19 21:03 21: 21:03 WBC 6.6 RBC 3.67 Hgb 6.9 L* Hct 22.8 L MCV 62.2 L MCH 18.7 L MCHC 30.1 L RDW 23.1 H Plt Count 459 H MPV 9.4 Absolute Neuts (auto) 3.6 Neutrophils % 55.6 Lymphocytes % 37.6 D Monocytes % 5.5 Eosinophils % 0.6 Basophils % 0.7 Nucleated RBC % 0 Hypochromia 2+ Anisocytosis 2+ Ovalocytes Few PT with INR INR D-Dimer Cancelled Sodium 135 L Potassium 4.9 Chloride 103 Carbon Dioxide 24 Anion Gap 8 BUN 13.8 Creatinine 0.9 Est GFR (CKD-EPI)AfAm 90.13 Est GFR (CKD-EPI)NonAf 77.76 Random Glucose 79 Calcium 9.1 Iron 20 L TIBC 514 H Iron Saturation 3 L Unsaturated IBC 494 H Ferritin 3.0 L Total Bilirubin 0.5 AST 31 ALT 14 Alkaline Phosphatase 58 Creatine Kinase 71 Troponin I < 0.02 Total Protein 8.8 H Albumin 3.6 Serum , Qual Blood Type Antibody Screen Crossmatch 12/04/19 12/04/19 12/04/19 21: 21:03 22:30 WBC RBC Hgb Hct MCV MCH MCHC RDW Plt Count MPV Absolute Neuts (auto) Neutrophils % Lymphocytes % Monocytes % Eosinophils % Basophils % Nucleated RBC % Hypochromia Anisocytosis Ovalocytes PT with INR 12.10 INR 1.03 D-Dimer Sodium Potassium Chloride Carbon Dioxide Anion Gap BUN Creatinine Est GFR (CKD-EPI)AfAm Est GFR (CKD-EPI)NonAf Random Glucose Calcium Iron TIBC Iron Saturation Unsaturated IBC Ferritin Total Bilirubin AST ALT Alkaline Phosphatase Creatine Kinase Troponin I Total Protein Albumin Serum , Qual Negative Blood Type A POSITIVE Antibody Screen Negative Crossmatch See Detail 12/05/19 12/05/19 12/05/19 01:00 06:46 06:46 WBC 4.8 RBC 3.88 Hgb 7.8 L Hct 25.3 L MCV 65.1 L MCH 20.0 L MCHC 30.7 L RDW 24.5 H Plt Count 392 MPV 9.4 Absolute Neuts (auto) Neutrophils % No Result Required. Lymphocytes % No Result Required. Monocytes % Eosinophils % Basophils % Nucleated RBC % Hypochromia Anisocytosis Ovalocytes PT with INR INR D-Dimer 1803 H Sodium 136 Potassium 4.4 Chloride 103 Carbon Dioxide 27 Anion Gap 7 L BUN 16.0 Creatinine 0.9 Est GFR (CKD-EPI)AfAm 90.13 Est GFR (CKD-EPI)NonAf 77.76 Random Glucose 84 Calcium 8.9 Iron TIBC Iron Saturation Unsaturated IBC Ferritin Total Bilirubin AST ALT Alkaline Phosphatase Creatine Kinase Troponin I < 0.02 Total Protein Albumin Serum , Qual Blood Type Antibody Screen Crossmatch ASSESSMENT/PLAN: Iron Deficiency anemia Menorrhagia 2/2 to uterine fibroids ? 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 Case to be discussed Austen Hidalgo, DO - IM PGY-3 Visit type - Emergency Visit Emergency Visit: Yes ED Registration Date: 12/04/19 Care time: The patient presented to the Emergency Department on the above date and was hospitalized for further evaluation of their emergent condition. - New Patient This patient is new to me today: No - Critical Care Critical Care patient: No ATTENDING PHYSICIAN STATEMENT I saw and evaluated the patient. I reviewed the resident's note and discussed the case with the resident. I agree with the resident's findings and plan as documented. SUBJECTIVE: OBJECTIVE: ASSESSMENT AND PLAN:
[2019-12-05] MEDS ORDERED: IRON SUCROSE INJECTION 200 MG in SODIUM CHLORIDE 90 ML IVPB ONE (11:00)
[2019-12-05 11:36] LABS: ANISOCYTOSIS 2+; OVALOCYTE 1+; PLATELET ESTIMATE NORMAL; TARGET CELLS 1+; TEAR DROP CELLS 1+
--- NOTE | 2019-12-05 12:48 | CON.PULM ---
Consult Consult Specialty:: PULM/CCM Referred by:: Hospitalist Reason for Consultation:: SOB - History of Present Illness Chief Complaint: SOB History of Present Illness: 44 F, unprovoked PE diagnose about 3 years ago at [facility]. Placed on Eliquis x 3 months. Patient reports that she may have seen a radar repairer at that time but is not 100% sure. Additional history of anemia with prior transfusions, uterine fibroids, HTN, and RA. Admitted via the ER due to short of breath, lightheaded, and disorientation. No fever or chills. No hemoptysis. Reports her grandmother had a DVT. There is no history consistent with [facility]AS. - History Source History Provided By: Patient Limitations to Obtaining History: No Limitations - Past Medical History Cardio/Vascular: Yes: HTN Pulmonary: Yes: Pulmonary Embolus (on eliquis). No: Asthma, Bronchitis, Cancer , COPD, O2 Dependent, Pneumonia, Previously Intubated, Pulmonary Fibrosis, Sleep Apnea ...LMP: 11/28/19 ...: No Psych: Yes: Anxiety - Alcohol/Substance Use Hx Alcohol Use: No - Smoking History Smoking history: Never smoked Have you smoked in the past 12 months: No - Social History History of Recent Travel: No Home Medications - Allergies Allergies/Adverse Reactions: Allergies Allergy/AdvReac Type Severity Reaction Status Date / Time peanut Allergy Severe Verified 12/06/17 10:36 No Known Drug Allergies Allergy Verified 12/06/17 10:36 - Home Medications Home Medications: Ambulatory Orders NK [No Known Home Medication] 12/04/19 Review of Systems - Review of Systems Constitutional: reports: Malaise. denies: Chills, Fever, Night Sweats, Unintentional Wgt. Loss Eyes: reports: No Symptoms HENT: reports: No Symptoms Cardiovascular: reports: Shortness of Breath. denies: Chest Pain, Edema, Palpitations Respiratory: reports: SOB, SOB on Exertion. denies: Cough, Exercise Intolerance , Hemoptysis, Orthopnea, PND, Snoring, Wheezing Gastrointestinal: reports: No Symptoms Genitourinary: reports: No Symptoms Breasts: reports: No Symptoms Reported Musculoskeletal: reports: No Symptoms Integumentary: reports: No Symptoms Neurological: reports: No Symptoms Endocrine: reports: No Symptoms Hematology/Lymphatic: reports: No Symptoms Psychiatric: reports: No Symptoms Physical Exam Vital Sings: Vital Signs Temperature 98.2 F 12/05/19 09:41 Pulse Rate 80 12/05/19 09:41 Respiratory Rate 18 12/05/19 09:41 Blood Pressure 143/72 12/05/19 09:41 O2 Sat by Pulse Oximetry (%) 96 12/05/19 03:00 Constitutional: Yes: Well Nourished, No Distress, Calm Eyes: Yes: Conjunctiva Clear, EOM Intact HENT: Yes: Atraumatic, Normocephalic Neck: Yes: Supple, Trachea Midline Cardiovascular: Yes: Regular Rate and Rhythm Respiratory: Yes: CTA Bilaterally. No: Rales, Rhonchi, SOB, SOB on Exertion, Stridor, Tachypnea, Wheezes ...Inspection: Yes: WNL ...Clubbing: No Gastrointestinal: Yes: Normal Bowel Sounds, Soft Renal/: Yes: WNL Musculoskeletal: Yes: WNL Extremities: Yes: WNL Edema: No Peripheral Pulses WNL: Yes Integumentary: Yes: WNL Neurological: Yes: WNL, Alert, Oriented ...Motor Strength: WNL Psychiatric: Yes: WNL, Alert, Oriented Labs: CBC, BMP 12/05/19 06:46 12/05/19 06:46 Imaging - Results Chest X-ray: Report Reviewed, Image Reviewed Problem List - Problems (1) HTN (hypertension) Code(s): I10 - ESSENTIAL (PRIMARY) HYPERTENSION (2) Symptomatic anemia Code(s): D64.9 - ANEMIA, UNSPECIFIED (3) Anemia Code(s): D64.9 - ANEMIA, UNSPECIFIED (4) Shortness of breath Code(s): R06.02 - SHORTNESS OF BREATH (5) Tingling in extremities Code(s): R20.2 - PARESTHESIA OF SKIN Assessment/Plan IMP: SOB & FINCH referable to Symptomatic Anemia Transfusional Support Noted elevated D-Dimer: Do not suspect VTE Suggested to the patient for outpatient Heme and 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 Dr Topete
--- NOTE | 2019-12-05 12:57 | PN ---
Progress Note (short form) - Note Progress Note: 44 F, unprovoked PE diagnose about 3 years ago at [facility]. Placed on Eliquis x 3 months. Patient reports that she may have seen a consumer experience consultant at that time but is not 100% sure. Additional history of anemia with prior transfusions, uterine fibroids, HTN, and RA. Pt examined H.o menorrhagia no dark stools s/p 1 unit PRBC Venofer infusion in progress Vital Signs - 24 hr 12/04/19 12/04/19 12/04/19 18:37 18:45 23:55 Temperature 97.1 F L 97.1 F L 98.9 F Pulse Rate 87 Pulse Rate [ 87 80 Right Radial] Respiratory 20 20 18 Rate Blood Pressure 139/73 Blood Pressure 139/73 134/64 [Left Arm] O2 Sat by Pulse 100 100 98 Oximetry (%) 12/05/19 12/05/19 12/05/19 00:10 02:24 03:00 Temperature 98.9 F 98.8 F Pulse Rate 103 H Pulse Rate [ 88 94 H Right Radial] Respiratory 18 18 18 Rate Blood Pressure 141/75 Blood Pressure 135/72 128/72 [Left Arm] O2 Sat by Pulse 99 98 96 Oximetry (%) 12/05/19 09:41 Temperature 98.2 F Pulse Rate 80 Pulse Rate [ Right Radial] Respiratory 18 Rate Blood Pressure 143/72 Blood Pressure [Left Arm] O2 Sat by Pulse Oximetry (%) Laboratory Results - last 24 hr 12/04/19 12/04/19 12/04/19 21:03 21:03 21:03 WBC 6.6 RBC 3.67 Hgb 6.9 L* Hct 22.8 L MCV 62.2 L MCH 18.7 L MCHC 30.1 L RDW 23.1 H Plt Count 459 H MPV 9.4 Absolute Neuts (auto) 3.6 Neutrophils % 55.6 Neutrophils % (Manual) Band Neutrophils % Lymphocytes % 37.6 D Lymphocytes % (Manual) Monocytes % 5.5 Monocytes % (Manual) Eosinophils % 0.6 Eosinophils % (Manual) Basophils % 0.7 Basophils % (Manual) Myelocytes % (Man) Promyelocytes % (Man) Blast Cells % (Manual) Nucleated RBC % 0 Metamyelocytes Hypochromia 2+ Platelet Estimate Platelet Comment Polychromasia Poikilocytosis Anisocytosis 2+ Microcytosis Spherocytes Target Cells Tear Drop Cells Ovalocytes Few Loi Cells Schistocytes PT with INR INR D-Dimer Cancelled Sodium 135 L Potassium 4.9 Chloride 103 Carbon Dioxide 24 Anion Gap 8 BUN 13.8 Creatinine 0.9 Est GFR (CKD-EPI)AfAm 90.13 Est GFR (CKD-EPI)NonAf 77.76 Random Glucose 79 Calcium 9.1 Iron 20 L TIBC 514 H Iron Saturation 3 L Unsaturated IBC 494 H Ferritin 3.0 L Total Bilirubin 0.5 AST 31 ALT 14 Alkaline Phosphatase 58 Creatine Kinase 71 Troponin I < 0.02 Total Protein 8.8 H Albumin 3.6 Serum , Qual Blood Type Antibody Screen Crossmatch 12/04/19 12/04/19 12/04/19 21:03 21:03 22:30 WBC RBC Hgb Hct MCV MCH MCHC RDW Plt Count MPV Absolute Neuts (auto) Neutrophils % Neutrophils % (Manual) Band Neutrophils % Lymphocytes % Lymphocytes % (Manual) Monocytes % Monocytes % (Manual) Eosinophils % Eosinophils % (Manual) Basophils % Basophils % (Manual) Myelocytes % (Man) Promyelocytes % (Man) Blast Cells % (Manual) Nucleated RBC % Metamyelocytes Hypochromia Platelet Estimate Platelet Comment Polychromasia Poikilocytosis Anisocytosis Microcytosis Spherocytes Target Cells Tear Drop Cells Ovalocytes Loi Cells Schistocytes PT with INR 12.10 INR 1.03 D-Dimer Sodium Potassium Chloride Carbon Dioxide Anion Gap BUN Creatinine Est GFR (CKD-EPI)AfAm Est GFR (CKD-EPI)NonAf Random Glucose Calcium Iron TIBC Iron Saturation Unsaturated IBC Ferritin Total Bilirubin AST ALT Alkaline Phosphatase Creatine Kinase Troponin I Total Protein Albumin Serum , Qual Negative Blood Type A POSITIVE Antibody Screen Negative Crossmatch See Detail 12/05/19 12/05/19 12/05/19 01:00 06:46 06:46 WBC 4.8 RBC 3.88 Hgb 7.8 L Hct 25.3 L MCV 65.1 L MCH 20.0 L MCHC 30.7 L RDW 24.5 H Plt Count 392 MPV 9.4 Absolute Neuts (auto) Neutrophils % No Result Required. Neutrophils % (Manual) 59.6 Band Neutrophils % 0.0 Lymphocytes % No Result Required. Lymphocytes % (Manual) 28.3 Monocytes % Monocytes % (Manual) 5 Eosinophils % Eosinophils % (Manual) 0.0 D Basophils % Basophils % (Manual) 0.0 Myelocytes % (Man) 0 Promyelocytes % (Man) 0 Blast Cells % (Manual) 0 Nucleated RBC % 2 H Metamyelocytes 0 Hypochromia 2+ Platelet Estimate Normal Platelet Comment Present Polychromasia 2+ Poikilocytosis 2+ Anisocytosis 2+ Microcytosis 1+ Spherocytes 1+ Target Cells 1+ Tear Drop Cells 1+ Ovalocytes 1+ Loi Cells 1+ Schistocytes 1+ PT with INR INR D-Dimer 1803 H Sodium 136 Potassium 4.4 Chloride 103 Carbon Dioxide 27 Anion Gap 7 L BUN 16.0 Creatinine 0.9 Est GFR (CKD-EPI)AfAm 90.13 Est GFR (CKD-EPI)NonAf 77.76 Random Glucose 84 Calcium 8.9 Iron TIBC Iron Saturation Unsaturated IBC Ferritin Total Bilirubin AST ALT Alkaline Phosphatase Creatine Kinase Troponin I < 0.02 Total Protein Albumin Serum , Qual Blood Type Antibody Screen Crossmatch S1 S2 RRR No pallor lungs clear Abd -soft, enlarged uterus no edema A/P Acute severe ANEMIA IRON DEFICIENCY MENORRGIA -- check pelvic sono -- elevated d dimer-- pulm eval noted -- does not suspect PE -- HCT better -- Hematology eval -- [employer] as outpt -- dc planning after she received venofer Problem List - Problems (1) Anxiety Code(s): F41.9 - ANXIETY DISORDER, UNSPECIFIED (2) HTN (hypertension) Code(s): I10 - ESSENTIAL (PRIMARY) HYPERTENSION (3) Symptomatic anemia Code(s): D64.9 - ANEMIA, UNSPECIFIED (4) Anemia Code(s): D64.9 - ANEMIA, UNSPECIFIED
[2019-12-06 07:16] VITALS: BP 132/78; PULSE 88; TEMP 98.9
--- NOTE | 2019-12-06 08:16 | PN ---
Progress Note (short form) - Note Progress Note: Patient seen and examined Iron deficiency secondary to menorrhagia . Hx of fibroid uterus Has received one unit of packed cells and Venofer Age 44-- can consider colonoscopy ( screening age 45), and f/u mammography. Needs BOOM MASTER follow up History of unprovoked P.E. - needs thrombophilia work up . Needs Fe++ and Vitamin C. If intolerant can consider infusional Fe++. Has reverse A/G ratio - needs protein evaluation. Can have outpatient work up.
--- NOTE | 2019-12-06 08:40 | PN ---
Progress Note (short form) - Note Progress Note: Feels well. No CP or SOB. Seen by Aron this AM. Intake & Output 12/03/19 12/04/19 12/05/19 12/06/19 23:59 23:59 23:59 23:59 Intake Total 1100 0 Balance 1100 0 Weight 190 lb 176 lb 3 oz Last Vital Signs Temp Pulse Resp BP Pulse Ox 98.9 F 88 18 132/78 96 12/06/19 06:00 12/06/19 06:00 12/06/19 06:00 12/06/19 06:00 12/05/19 21:00 Constitutional: Yes: Well Nourished, No Distress, Calm Eyes: Yes: Conjunctiva Clear, EOM Intact HENT: Yes: Atraumatic, Normocephalic Neck: Yes: Supple, Trachea Midline Cardiovascular: Yes: Regular Rate and Rhythm Respiratory: Yes: CTA Bilaterally. No: Rales, Rhonchi, SOB, SOB on Exertion, Stridor, Tachypnea, Wheezes ...Inspection: Yes: WNL ...Clubbing: No Gastrointestinal: Yes: Normal Bowel Sounds, Soft Renal/: Yes: WNL Musculoskeletal: Yes: WNL Extremities: Yes: WNL Edema: No Peripheral Pulses WNL: Yes Integumentary: Yes: WNL Neurological: Yes: WNL, Alert, Oriented ...Motor Strength: WNL Psychiatric: Yes: WNL, Alert, Oriented Labs: Laboratory Results - last 24 hr 12/05/19 12/05/19 12/05/19 06:46 06:46 13:54 Neutrophils % (Manual) 59.6 Band Neutrophils % 0.0 Lymphocytes % (Manual) 28.3 Monocytes % (Manual) 5 Eosinophils % (Manual) 0.0 D Basophils % (Manual) 0.0 Myelocytes % (Man) 0 Promyelocytes % (Man) 0 Blast Cells % (Manual) 0 Nucleated RBC % 2 H Metamyelocytes 0 Hypochromia 2+ Platelet Estimate Normal Platelet Comment Present Polychromasia 2+ Poikilocytosis 2+ Anisocytosis 2+ Microcytosis 1+ Spherocytes 1+ Target Cells 1+ Tear Drop Cells 1+ Ovalocytes 1+ Loi Cells 1+ Schistocytes 1+ Sodium 136 Potassium 4.4 Chloride 103 Carbon Dioxide 27 Anion Gap 7 L BUN 16.0 Creatinine 0.9 Est GFR (CKD-EPI)AfAm 90.13 Est GFR (CKD-EPI)NonAf 77.76 Random Glucose 84 Calcium 8.9 Troponin I < 0.02 < 0.02 Problem List - Problems (1) HTN (hypertension) Code(s): I10 - ESSENTIAL (PRIMARY) HYPERTENSION (2) Symptomatic anemia Code(s): D64.9 - ANEMIA, UNSPECIFIED (3) Anemia Code(s): D64.9 - ANEMIA, UNSPECIFIED (4) Shortness of breath Code(s): R06.02 - SHORTNESS OF BREATH (5) Tingling in extremities Code(s): R20.2 - PARESTHESIA OF SKIN Assessment/Plan IMP: SOB & FINCH referable to Symptomatic Anemia Outpatient Heme followup / workup No smoking There is no Pulmonary contraindication for DC home Dr Topete Problem List - Problems (1) HTN (hypertension) Code(s): I10 - ESSENTIAL (PRIMARY) HYPERTENSION (2) Symptomatic anemia Code(s): D64.9 - ANEMIA, UNSPECIFIED (3) Anemia Code(s): D64.9 - ANEMIA, UNSPECIFIED (4) Shortness of breath Code(s): R06.02 - SHORTNESS OF BREATH (5) Tingling in extremities Code(s): R20.2 - PARESTHESIA OF SKIN
--- NOTE | 2019-12-06 10:06 | DS ---
Physical Examination Vital Signs: Vital Signs Temperature 98.9 F 12/06/19 06:00 Pulse Rate 88 12/06/19 06:00 Respiratory Rate 18 12/06/19 06:00 Blood Pressure 132/78 12/06/19 06:00 O2 Sat by Pulse Oximetry (%) 96 12/05/19 21:00 Labs: CBC, BMP 12/05/19 06:46 12/05/19 06:46 Discharge Summary Problems reviewed: Yes Reason For Visit: ANEMIA Hospital Course: signed out AMA Condition: Stable - Instructions Referrals: En Davison MD [Primary Care Provider] - Disposition: AGAINST MEDICAL ADVICE - Home Medications Comprehensive Discharge Medication List: Ambulatory Orders NK [No Known Home Medication] 12/04/19
--- NOTE | 2019-12-06 11:42 | CONS ---
DATE OF CONSULTATION: 12/06/2019 HISTORY OF PRESENT ILLNESS: This 44-year-old female entered with profound anemia, shortness of breath, some change in mental status; likely secondary to the low blood count with fogginess described. Patient entered with a hemoglobin of 6.9, hematocrit 22.8 with MCV of 62, MCH of 18, WBC 6.6, platelets 459 with rather normal differential. Her iron studies revealed a ferritin of 3, serum iron of 20, a TIBC of 514 and an iron saturation of 3%. The patient describes heavy menses lasting 4 to 5 days. The first days are painful associated with clots. Previously the patient 3 years earlier had an unprovoked PE at [facility]. No control pills. No travel associated. She was placed on Eliquis and at that time had excessive menses lasting 2 weeks with excessive bleeding as well. Patient has been evaluated previously and does have uterine fibroids. Has not followed up with [facility]. 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 Drinks 2 bottles of red wine per week, occasionally more on holidays. No industrial exposures or intoxicants. FAMILY HISTORY: Includes a grandmother who had a blood clot, a mother who had a stroke, father with hypertension and high cholesterol. No history of cancer, but for some distant relatives, uncles, on the father's side. PAST MEDICAL HISTORY: Noncontributory. SURGICAL HISTORY: Positive only for a . The patient is a 1, para 1, ABO female had her first at age 30. Briefly took control pills in the s. REVIEW OF SYSTEMS: No headaches, no diplopia, no epistaxis, no dysphagia. Patient had some chest discomfort, shortness of breath, difficulty breathing associated with the low hematocrit. No GERD. No nausea, vomiting, diarrhea, constipation. Has not had a colonoscopy. Has had mammograms 2 years ago reportedly unrevealing. No recent [employer] follow up. No dysuria, hematuria, polyuria. Patient has no musculoskeletal symptoms, joint pain, numbness or tingling, but does have occasional numbness in the fingers, secondary to cervical spine disease and "pinched nerve." CURRENT PHYSICAL EXAMINATION: Vitals: BP 132/78, pulse 88, respiratory rate 18, afebrile. HEENT: PERRLA, EOM intact. Oropharynx unremarkable. No cervical or supraclavicular nodes. Lungs: Clear. Cardiac: RSR. Breasts: No dominant masses. Nipple ring on the left. Abdomen: Soft, no organomegaly or masses. Extremities: No significant edema. Tattoo in the sacral region. LABORATORY: 135 sodium, potassium 4, chloride 103, CO2 27, GFR 90, glucose 84, iron 20, TIBC 514, saturation 3%, ferritin 3, AST 31, ALT 14, alkaline phosphatase 58, creatine kinase, CPK 71, troponin less than 0.2, not , protein 8.8, albumin 3.6. INR 1.03, D-dimer 1800. Chemistries as aforementioned. Patient received one unit of packed cells, one infusion of 200 mg of Venofer. Hematocrit 25%, WBC 4.8, platelet 392 post transfusion. IMPRESSION: 1. Iron deficiency likely secondary to menorrhagia. 2. History of unprovoked pulmonary embolism. 3. Patient described some paresthesias of the left leg currently going in the right upper extremity. A trial of iron therapy with vitamin C. If intolerant, intravenous iron would be a consideration. [employer] [facility] follow up as outpatient to be considered. Thrombus workup as outpatient as well. Can consider mammography as well as a colonoscopy as the patient is 44 and current standard for screening is at age 45. JAVIER YU M.D. [id number]
== END 2019-12-06 10:02 | disposition left against medical advice (07) | DRG 663 ==
LOC: JER 18:12 → SUPCPDRO 18:12 → JERBED 23:11 → J5S 12-05 02:49
PROVIDERS: ADMIT Internal Medicine; ATTEND Internal Medicine
PROC: 30233N1 Transfusion of Nonautologous Red Blood Cells into Peripheral Vein, Percutaneous Approach (ICD-10-PCS; principal; 2019-12-04)
DX: D50.9 Iron deficiency anemia, unspecified (principal); F41.9 Anxiety disorder, unspecified; Z86.711 Personal history of pulmonary embolism; I10 Essential (primary) hypertension; M06.9 Rheumatoid arthritis, unspecified; Z79.01 Long term (current) use of anticoagulants; E66.9 Obesity, unspecified; N92.0 Excessive and frequent menstruation with regular cycle; R00.2 Palpitations; D25.9 Leiomyoma of uterus, unspecified; Z68.30 Body mass index [BMI] 30.0-30.9, adult
CPT/HCPCS: 36415; 36430; 71045-TC-FY; 76856-TC; 80048; 80053; 82550; 82728; 83540; 83550; 84484; 84703; 85025; 85379; 85610; 86850; 86900; 86901; 86922; 93005; 93010; 99285-25; J1756; P9058

== ENCOUNTER 2023-12-23 17:03 | Emergency (ER) | payer OTHER ==
[2023-12-23 17:26] VITALS: BP 177/74; PULSE 87; RESP 19; TEMP 98.4; BMI 34.3
== END 2023-12-23 19:50 | disposition home or self-care (01) ==
LOC: JERFT 17:03
PROC: 0H9BXZZ Drainage of Right Upper Arm Skin, External Approach (ICD-10-PCS; principal; 2023-12-23)
DX: L02.413 Cutaneous abscess of right upper limb (principal)
CPT/HCPCS: 99283-25